=== PATIENT | female | born 1945 | race Caucasian/White ===

== ENCOUNTER 2017-09-14 07:08 | Day surgery (SDC) | payer OTHER ==
[2017-09-14 07:56] VITALS: BMI 34.7
[2017-09-14 08:14] VITALS: TEMP 97.5
[2017-09-14] MEDS ORDERED: Lactated Ringer's 1,000 ML IV ONE (08:51)
[2017-09-14] MEDS ORDERED: Propofol 10 mg/ml Inj (20 ML) ONE (09:04)
[2017-09-14 10:30] VITALS: BP 135/63; PULSE 68; RESP 16; O2SAT 100
== END 2017-09-14 10:25 | disposition home or self-care (01) ==
LOC: C.ENDO 07:08
PROVIDERS: ATTEND Internal Medicine
DX: Z12.11 Encounter for screening for malignant neoplasm of colon (principal); D12.3 Benign neoplasm of transverse colon
CPT/HCPCS: 45380; 88305; J2704; J7120